=== PATIENT | female | born 1955 | race African-American/Black ===

== ENCOUNTER 2024-11-29 11:09 | Emergency (ER) | payer OTHER, BC ==
[2024-11-29] MEDS ORDERED: HYDROCODONE/APAP 5/325 MG TAB ONE (12:13)
--- NOTE | 2024-11-29 12:36 | RAD REPORT ---
EXAM: CT PELVIS WITHOUT CONTRAST HISTORY: right hip/pelvis pain;Pain COMPARISON: None TECHNIQUE: Multiple contiguous axial images were obtained and a CT of the pelvis with IV contrast. Sa gittal and coronal reformats were performed. One or more of the following dose reduction techniques were used: Automated exposure control, adjustment of the mA and/or kV according to patient size, and/ or iterative reconstruction. FINDINGS: No pelvic fractures are seen. No fracture of either proximal femur is seen. Mild lower lumb ar spondylosis. Sigmoid diverticulosis is present mild wall thickening. No diverticulitis. Fat-containing inguinal he rnia on the right. The soft tissues surrounding the pelvis are unremarkable. IMPRESSION: No acute findings seen.
--- NOTE | 2024-11-29 13:34 | ER ---
Nurse's Notes [facility] Name: Kristin Cervantes Age: 69 yrs Sex: Female : 1955 Arrival Date: 11/29/2024 Time: 11:09 Bed 23 Private MD: Diagnosis: Pain in right hip;Fall on same level, unspecified Presentation: 11/29 11:16 Chief complaint: Patient states: FELL BACKWARDS WHILE IN THE SHOWER. STATES LOST db BALANCE. RIGHT HIP PAIN. STATES FELL THURSDAY NIGHT. Coronavirus screen: Client denies travel out of the [place] in the last 14 days. At this time, the client does not indicate any symptoms associated with coronavirus-19. Ebola Screen: Patient negative for fever greater than or equal to 101.5 degrees Fahrenheit, and additional compatible Ebola Virus Disease symptoms Patient denies exposure to infectious person. Patient denies travel to an Ebola-affected area in the 21 days before illness onset. No symptoms or risks identified at this time. Initial Sepsis Screen: Does the patient meet any 2 criteria? No. Patient's initial sepsis screen is negative. Does the patient have a suspected source of infection? No. Patient's initial sepsis screen is negative. Risk Assessment: Do you want to hurt yourself or someone else? Patient reports no desire to harm self or others. Onset of symptoms was November 26, 2024. 11:16 Method Of Arrival: Wheelchair db 11:16 Acuity: ROBERT 3 db Triage Assessment: 11:18 General: Appears in no apparent distress. comfortable, Behavior is calm, cooperative. db Pain: Complains of pain in right hip. Neuro: Level of Consciousness is awake, alert, obeys commands, Oriented to person, place, time, situation. Respiratory: Airway is patent Respiratory effort is even, unlabored, Respiratory pattern is regular, symmetrical. Historical: - Allergies: 11:18 No Known Allergies; db - Home Meds: 11:18 None [Active]; db - PMHx: 11:18 Asthma; Hypertensive disorder; db - Immunization history:: Adult Immunizations unknown. - Infectious Disease History:: Denies. - Social history:: Smoking status: Patient denies any tobacco usage or history of. unknown. Screenin:19 [facility] ED Fall Risk Assessment (Adult) History of falling in the last 3 months, rg5 including since admission Yes- single mechanical fall (1 pt) Confusion or Disorientation No (0 pts) Intoxicated or Sedated No (0 pts) Impaired Gait Yes (1 pt) Mobility Assist Device Used No (0 pt) Altered Elimination No (0 pt) Score/Fall Risk Level 0 - 2 = Low Risk Oriented to surroundings, Maintained a safe environment. Abuse screen: Denies threats or abuse. Nutritional screening: No deficits noted. Tuberculosis screening: No symptoms or risk factors identified. Primary Survey: 12:15 NO uncontrolled hemorrhage observed. rg5 12:15 A: The client is awake and alert. The airway is patent. Breathing/Chest: Spontaneous rg5 respiratory effort, equal unlabored respirations, breath sounds clear bilaterally, regular pattern, symmetrical chest rise and fall. Circulation: No external hemorrhage present. Regular and strong central pulse, skin warm/dry/normal color. Disability Pupils are equal, round, reactive to light and accommodation. Client is alert. Exposure/Environment: All clothing and personal items were removed. Forensic evidence collection is not deemed to be indicated at this time. Items placed in patient belonging bag. There is no evidence of uncontrolled external bleeding. Assessment: 12:19 General: Appears in no apparent distress. uncomfortable, Behavior is calm, cooperative, rg5 appropriate for age. Pain: Complains of pain in back Quality of pain is described as aching. Neuro: Level of Consciousness is awake, alert, obeys commands, Oriented to person, place, time, situation. Cardiovascular: Denies Patient's skin is warm and dry. Respiratory: Airway is patent Trachea midline Respiratory effort is even, unlabored, Respiratory pattern is regular, symmetrical. GI: Abdomen is round non-distended. : No signs and/or symptoms were reported regarding the genitourinary system. EENT: No signs and/or symptoms were reported regarding the EENT system. Derm: Skin is intact, Skin is dry, Skin temperature is warm. Musculoskeletal: Circulation, motion, and sensation intact. Range of motion: intact in all extremities. 13:00 Reassessment: Patient and/or family updated on plan of care and expected duration. Pain rg5 level reassessed. Patient is alert, oriented x 3, equal unlabored respirations, skin warm/dry/pink. Patient states symptoms have improved. Vital Signs: 11:16 BP 159 / 102; Pulse 74; Resp 16; Temp 98.3; Pulse Ox 96% ; Weight 77.11 kg; Height 5 db ft. 4 in. ; Pain 9/10; 12:23 BP 213 / 88; Pulse 66; Resp 18; Pulse Ox 97% ; Pain 10/10; rg5 13:00 BP 171 / 77; Pulse 64; Resp 18; Pulse Ox 98% ; rg5 11:16 Body Mass Index 29.18 (77.11 kg, 162.56 cm) db 11:16 Pain Scale: Adult db 12:23 Pain Scale: Adult rg5 [place] Coma Score: 12:15 Eye Response: spontaneous(4). Motor Response: obeys commands(6). Verbal Response: rg5 oriented(5). Total: 15. Trauma Score (Adult): 12:15 Eye Response: spontaneous(1); Verbal Response: oriented(1); Motor Response: obeys rg5 commands(2); Systolic BP: > 89 mm Hg(4); Respiratory Rate: 10 to 29 per min(4); Erick Score: 15; Trauma Score: 12 ED Course: 11:14 Patient arrived in ED. db 11:18 Ashley Rogel FNP-C is PHCP. kb 11:18 Poli Bacon MD is Attending Physician. kb 11:18 Triage completed. db 11:18 Arm band placed on Patient placed in an exam room. db 12:11 Josh Garcia, RN is Primary Nurse. rg5 12:19 Bed in low position. Call light in reach. Side rails up X 1. Door closed. Noise rg5 minimized. 12:19 No provider procedures requiring assistance completed. rg5 12:23 Patient maintains SpO2 saturation greater than 95% on room air. rg5 12:24 CT Pelvis wo Cont In Process Unspecified. EDMS 13:50 Patient did not have IV access during this emergency room visit. rg5 Administered Medications: 12:25 Drug: HYDROcodone-acetaminophen PO 5 mg-325 mg 1 tabs PO once Route: PO; rg5 12:51 Follow up: Response: No adverse reaction rg5 Medication: 12:19 VIS not applicable for this client. rg5 Intake: 12:23 PO: 100ml (Water); Total: 100ml. rg5 Outcome: 13:33 Discharge ordered by . kb 13:50 Discharged to home via wheelchair, rg5 13:50 Condition: stable 13:50 Discharge instructions given to patient, family, Instructed on discharge instructions, Demonstrated understanding of instructions, Prescriptions given X 1, 13:50 Patient left the ED. rg5 Signatures: Dispatcher [employer] EDAshley Wong, ARMANDO LEBRON-Nicole Mcallister, RN RN db Josh Garcia RN RN rg5
--- NOTE | 2024-11-29 13:34 | EDPHYS ---
Physician Documentation [facility] Name: Kristin Cervantes Age: 69 yrs Sex: Female : 1955 Arrival Date: 11/29/2024 Time: 11:09 Bed 23 Private MD: ED Physician Poli Bacon HPI: 11/29 14:22 This 69 yrs old Black Female presents to ER via Wheelchair with complaints of Fall kb Injury, Hip Pain. 14:22 Patient is a 69-year-old female who presents for right hip and low back pain that kb started Thursday after falling in the shower. States she slipped and fell onto her buttocks. Reports she had pain across low back into both hips but now it is just on the right.. Historical: - Allergies: 11:18 No Known Allergies; db - Home Meds: :18 None [Active]; db - PMHx: 11:18 Asthma; Hypertensive disorder; db - Immunization history:: Adult Immunizations unknown. - Infectious Disease History:: Denies. - Social history:: Smoking status: Patient denies any tobacco usage or history of. unknown. ROS: 14:21 Constitutional: As per HPI kb Exam: 14:21 Constitutional: This is a well developed, well nourished patient who is awake, alert, kb and in no acute distress. Head/Face: Normocephalic, atraumatic. Respiratory: Respirations even and unlabored. No increased work of breathing. Talking in full sentences Skin: Warm, dry with normal turgor. Normal color. Neuro: Awake and alert, GCS 15, oriented to person, place, time, and situation. 14:21 Musculoskeletal/extremity: Extremities: grossly normal except: noted in the right lower back and right hip: pain, tenderness, ROM: intact in all extremities, Circulation is intact in all extremities. Sensation intact. Weight bearing: able to fully bear weight, Vital Signs: 11:16 BP 159 / 102; Pulse 74; Resp 16; Temp 98.3; Pulse Ox 96% ; Weight 77.11 kg; Height 5 db ft. 4 in. ; Pain 9/10; 12:23 BP 213 / 88; Pulse 66; Resp 18; Pulse Ox 97% ; Pain 10/10; rg5 13:00 BP 171 / 77; Pulse 64; Resp 18; Pulse Ox 98% ; rg5 11:16 Body Mass Index 29.18 (77.11 kg, 162.56 cm) db 11:16 Pain Scale: Adult db 12:23 Pain Scale: Adult rg5 [place] Coma Score: 12:15 Eye Response: spontaneous(4). Motor Response: obeys commands(6). Verbal Response: rg5 oriented(5). Total: 15. Trauma Score (Adult): 12:15 Eye Response: spontaneous(1); Verbal Response: oriented(1); Motor Response: obeys rg5 commands(2); Systolic BP: > 89 mm Hg(4); Respiratory Rate: 10 to 29 per min(4); Erick Score: 15; Trauma Score: 12 MDM: 11:18 Medical Screening Exam initiated kb 14:22 Differential diagnosis: contusion, fracture, sprain, strain. Data reviewed: vital kb signs, nurses notes. Historians other than the Patient: Family Member: Family. Counseling: I had a detailed discussion with the patient and/or guardian regarding the historical points, exam findings, and any diagnostic results supporting the discharge/admit diagnosis, radiology results, the need for outpatient follow up, a family practitioner, to return to the emergency department if symptoms worsen or persist or if there are any questions or concerns that arise at home. 11/29 11:21 Order name: CT Pelvis wo Cont; Complete Time: 12:39 kb Administered Medications: 12:25 Drug: HYDROcodone-acetaminophen PO 5 mg-325 mg 1 tabs PO once Route: PO; rg5 12:51 Follow up: Response: No adverse reaction rg5 Disposition: 16:07 Co-signature as Attending Physician, Poli Bacon MD I reviewed the patient's care rn provided by the Advanced Practice Provider and agree with the diagnosis and treatment plan. Disposition Summary: 11/29/24 13:33 Discharge Ordered Notes: Location: Home kb Condition: Stable kb Diagnosis - Pain in right hip kb - Fall on same level, unspecified kb Followup: kb - With: Emergency Department - When: As needed - Reason: Worsening of condition Followup: kb - With: Private Physician - When: 2 - 3 days - Reason: Recheck today's complaints, Continuance of care, Re-evaluation by your physician Discharge Instructions: - Discharge Summary Sheet kb - Musculoskeletal Pain kb - Hip Pain kb Forms: - Medication Reconciliation Form kb - Antibiotic Education kb - Prescription Opioid Use kb - Patient Portal Instructions kb - Leadership Thank You Letter kb Prescriptions: - orphenadrine citrate 100 mg Oral Tablet Sustained Release - take 1 tablet ORAL route 2 times per day As needed; 20 tablet; Refills: 0, kb Product Selection Permitted Signatures: Dispatcher [employer] Ashley Gasca, ROGELIOC PNEUMATIC DEICER INSPECTOR-Poli Arce MD MD rn Benton, Danielle RN Josh Solano RN RN rg5
[2024-11-29 21:56] VITALS: TEMP 98.3
[2024-11-29 22:04] VITALS: BP 171/77; O2SAT 98
== END 2024-11-29 13:50 | disposition home or self-care (01) ==
LOC: ER 11:09
DX: M25.551 Pain in right hip (principal); W18.2XXA Fall in (into) shower or empty bathtub, initial encounter; M54.50 Low back pain, unspecified
CPT/HCPCS: 72192; 99283